=== PATIENT | female | born 1965 | race African-American/Black ===

== ENCOUNTER 2016-06-25 12:30 | Inpatient (IN) | payer OTHER ==
[2016-06-25 13:28] VITALS: BMI 29.5
[2016-06-25] MEDS ORDERED: chlordiazePOXIDE HCL 25 MG CAPSULE PO PRN (14:56)
[2016-06-25] MEDS ORDERED: MAGNESIUM CITRATE 300 ML BOTTLE PO PRN (14:56)
[2016-06-25] MEDS ORDERED: NICOTINE POLACRILEX 2 MG GUM BUC PRN (14:56)
[2016-06-25] MEDS ORDERED: IBUPROFEN 400 MG TABLET (FP) PO PRN (14:56)
[2016-06-25] MEDS ORDERED: MAG HYDROX/AL HYDROX/SIMETH 30 ML UNIT-DOSE CUP PO PRN (14:56)
[2016-06-25] MEDS ORDERED: P-EPHED 60MG/TRIPROLIDI 2.5MG TABLET PO PRN (14:56)
[2016-06-25] MEDS ORDERED: ACETAMINOPHEN 325 MG TABLET (FP) PO PRN (14:56)
[2016-06-25] MEDS ORDERED: MAGNESIUM HYDROX 2400MG/30ML ORAL SUSPENSION 30 ML CUP PO PRN (14:56)
[2016-06-25] MEDS ORDERED: MENTHOL/PHENOL 1 EACH UD MM PRN (14:56)
[2016-06-25] MEDS ORDERED: guaiFENesin/D-METHORPHAN HB 10 ML UNIT-DOSE CUPS PO PRN (14:56)
[2016-06-25] MEDS ORDERED: hydrOXYzine PAMOATE 50 MG CAPSULE (FP) PO PRN (14:56)
[2016-06-25] MEDS ORDERED: LOPERAMIDE HCL 2 MG CAPSULE PO PRN (14:56)
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
[2016-06-25] MEDS ORDERED: ALBUTEROL SO4 6.7 GM HFA INHALER IH PRN (14:58)
[2016-06-25] MEDS ORDERED: ONDANSETRON *ODT* 4 MG TABLET SL PRN (14:58)
[2016-06-25] MEDS ORDERED: NICOTINE 14 MG/24 HOURS TOPICAL PATCH TD SCH (15:00)
[2016-06-25] MEDS ORDERED: chlordiazePOXIDE HCL 25 MG CAPSULE PO ONE (17:00)
[2016-06-25] MEDS ORDERED: amLODIPine BESYLATE 10 MG TABLET (FP) PO SCH (17:15)
[2016-06-25] MEDS ORDERED: ONDANSETRON *ODT* 4 MG TABLET SL ONE (17:15)
[2016-06-25] MEDS: chlordiazePOXIDE HCL 25 MG CAPSULE PO SCH ×2 (17:28→22:21)
[2016-06-25] MEDS ORDERED: BUDESONIDE/FORMETEROL FUMARATE 80/4.5 mcg INHALER IH SCH (22:00)
[2016-06-25] MEDS ORDERED: THIAMINE HCL 100 MG TABLET (FP) PO SCH (22:00)
[2016-06-25] MEDS ORDERED: diphenhydrAMINE HCL 50 MG CAPSULE PO PRN (22:00)
[2016-06-26 00:13] LABS: URINE APPEARANCE CLEAR; URINE BILIRUBIN NEGATIVE (NEGATIVE); URINE BLOOD 3+ (NEGATIVE); URINE COLOR LT. RED; URINE GLUCOSE (UA) NEGATIVE (NEGATIVE); URINE KETONE NEGATIVE (NEGATIVE); URINE LEUK ESTERASE TRACE (NEGATIVE); URINE NITRITE NEGATIVE (NEGATIVE); URINE PROTEIN NEGATIVE (NEGATIVE); URINE UROBILINOGEN 0.2 E.U/dl E.U./dl (0.2-1.0)
[2016-06-26 01:01] LABS: URINE RBC 60 /hpf (0-3); URINE WBC 2 /hpf (3-5)
[2016-06-26] MEDS: chlordiazePOXIDE HCL 25 MG CAPSULE PO SCH (06:09)
[2016-06-26 09:40] VITALS: BP 132/87; PULSE 72; TEMP 97.5
--- NOTE | 2016-06-26 09:50 | PN ---
[facility] Progress Note Note: pt states he is not ready for detox and cant sleep even though she has an order for sleeping aide. pt spoke with ad writer, RN and counselor and refused to complete detox and signed out AMA.
--- NOTE | 2016-06-26 09:51 | DS ---
[facility] Detox Discharge Summary Admission Date: 06/25/16 Discharge Date: 06/26/16 (not ready for detox) - History Present History: Alcohol Dependence - Physical Exam Results Vital Signs: Vital Signs Temperature 97.5 F L 06/26/16 09:39 Pulse Rate 72 06/26/16 09:39 Respiratory Rate 20 06/26/16 09:39 Blood Pressure 132/87 06/26/16 09:39 O2 Sat by Pulse Oximetry (%) - Medication Discharge Medications: Ambulatory Orders Albuterol Sulfate Inhaler - [Ventolin Hfa Inhaler -] 2 inh PO Q4H PRN 10/31/15 Amlodipine Besylate [Norvasc -] 10 mg PO DAILY 10/31/15 Sertraline HCl [Zoloft -] 150 mg PO DAILY 10/31/15 Hydrochlorothiazide [Hctz -] 25 mg PO DAILY 06/25/16 - Diagnosis (1) Syncope Current Visit: Yes Status: Acute (2) Alcohol dependence with uncomplicated withdrawal Current Visit: Yes Status: Chronic (3) Asthma Current Visit: Yes Status: Chronic Qualifiers: Asthma severity: mild intermittent Asthma complication type: with status asthmaticus Qualified Code(s): J45.22 - Mild intermittent asthma with status asthmaticus (4) Depression Current Visit: Yes Status: Chronic Qualifiers: Depression Type: dysthymia Qualified Code(s): F34.1 - Dysthymic disorder (5) Hypertension Current Visit: Yes Status: Chronic Qualifiers: Hypertension type: essential hypertension Qualified Code(s): I10 - Essential (primary) hypertension (6) Borderline diabetic Current Visit: No Status: Suspected - AMA Did Patient Leave Against Medical Advice: Yes
[2016-06-26] MEDS ORDERED: PRENATAL VITAMINS W/ FOLIC ACID TABLET (FP) PO SCH (10:00)
[2016-06-26 10:02] LABS: MCH 27.3 pg (25.7-33.7); MCHC 31.8 g/dl (32.0-36.0); PLATELET COUNT 302 K/MM3 (134-434); RDW 16.6 % (11.6-15.6); WHITE BLOOD COUNT 5.8 K/mm3 (4.0-10.0)
[2016-06-26 10:23] LABS: ALBUMIN 3.5 g/dl (3.4-5.0); ALK PHOS 126 U/L (45-117); ANION GAP 10 (8-16); BILIRUBIN,TOTAL 0.2 mg/dL (0.2-1.0); CO2 26 mmol/L (21-32); CREATININE 0.9 mg/dL (0.55-1.02); GLUCOSE,RANDOM 115 mg/dL (74-106); SGOT/AST 23 U/L (15-37); SGPT/ALT 27 U/L (12-78)
[2016-06-26] MEDS ORDERED: chlordiazePOXIDE HCL 25 MG CAPSULE PO SCH (17:00)
--- NOTE | 2016-06-26 23:36 | EKG ---
Test Reason : Blood Pressure : / mmHG Vent. Rate : 076 BPM Atrial Rate : 076 BPM P-R Int : 140 ms QRS Dur : 076 ms QT Int : 388 ms P-R-T Axes : 067 049 020 degrees QTc Int : 436 ms NORMAL SINUS RHYTHM NORMAL ECG NO PREVIOUS ECGS AVAILABLE Confirmed by MEE SEARS MD [id number]) on 06/26/2016 11:35:52 PM Referred By: Confirmed By:MEE SEARS MD
[2016-06-27] MEDS ORDERED: chlordiazePOXIDE 5 MG CAPSULE PO SCH (17:00)
[2016-06-28] MEDS ORDERED: chlordiazePOXIDE HCL 10 MG CAPSULE PO SCH (17:00)
== END 2016-06-26 10:06 | disposition left against medical advice (07) | DRG 770 ==
LOC: YASAS 12:30 → Y6N 16:14
PROVIDERS: ADMIT Internal Medicine Addiction Medicine; ATTEND Internal Medicine Addiction Medicine
PROC: HZ2ZZZZ Detoxification Services for Substance Abuse Treatment (ICD-10-PCS; principal; 2016-06-26)
DX: F10.230 Alcohol dependence with withdrawal, uncomplicated (principal); F14.20 Cocaine dependence, uncomplicated; F17.210 Nicotine dependence, cigarettes, uncomplicated; F34.1 Dysthymic disorder; I10 Essential (primary) hypertension; J45.22 Mild intermittent asthma with status asthmaticus; E11.9 Type 2 diabetes mellitus without complications; R55 Syncope and collapse
CPT/HCPCS: 36415; 80053; 81003; 81015; 85027; 86593; 93005; 93010